=== PATIENT | female | born 1990 | race American Indian/Alaskan Native ===

== ENCOUNTER 2018-06-23 19:17 | Emergency (ER) | payer MEDICAID ==
[2018-06-23 19:22] VITALS: BP 123/58
--- NOTE | 2018-06-23 19:25 | Emergency Department Report ---
Blank Doc - Documentation Documentation: This is a 28-year-old female that presents with vaginal bleeding and pelvic pa in. Stated is about 10 weeks . This initial assessment/diagnostic orders/clinical plan/treatment(s) is/are subject to change based on patient's health status, clinical progression and re-assessment by fellow clinical providers in the ED. Further treatment and workup at subsequent clinical providers discretion. Patient/guardians urged not to elope from the ED as their condition may be serious if not clinically assessed and managed. Initial orders include: 1- Patient sent to [facility] for further evaluation and treatment 2- UA 3- Labs
[2018-06-23 20:28] LABS: Hematocrit 36.3 % (30.3-42.9); Hemoglobin 12.3 gm/dl (10.1-14.3); Mean Corpuscular HGB Conc 34 % (30-34); Mean Corpuscular Volume 88 fl (79-97); Platelet Count 313 K/mm3 (140-440); Red Blood Count 4.13 M/mm3 (3.65-5.03); Red Cell Distribution Width 15.4 % (13.2-15.2)
[2018-06-23 21:09] LABS: Basophils % (Manual) 0 % (0.0-1.8); Total Cells Counted 100
[2018-06-23 21:10] LABS: Anisocytosis 1+; Platelet Estimate Consistent w Auto
--- NOTE | 2018-06-23 22:03 | Emergency Department Report ---
ED HPI - General Chief complaint: Vaginal Bleeding Stated complaint: BLEEDING DURING 10WKS Time Seen by Provider: 06/23/18 19:25 Source: patient Mode of arrival: Ambulatory Limitations: No Limitations - History of Present Illness Initial comments: 28-year-old -[place] female comes in stating she is 10 weeks and started spotting last night. Patient states that it was pinkish yesterday and today it is brownish. Patient reports no pads had been soaked and only have spotting on toilet paper. Patient admits to intermittent pelvic cramping on the right side. Patient is 1 denies any dysuria no vaginal discharge. Patient reports she is taking her vitamins she is going to be followed by Dr. Keysha Morrow at [facility]. MD Complaint: abdominal pain, vaginal bleeding -: days(s) Radiation: RLQ Severity scale (0 -10): 3 Quality: cramping Consistency: intermittent Improves with: none Worsens with: none Associated symptoms: denies other symptoms Vaginal bleeding: light :: Yes Number of weeks : 10 Pre-asad care: followed by OB - Related Data : 0 Allergies Allergy/AdvReac Type Severity Reaction Status Date / Time No Known Allergies Allergy Unverified 06/23/18 19:46 ED Review of Systems ROS: Stated complaint: BLEEDING DURING 10WKS Other details as noted in HPI Comment: All other systems reviewed and negative Gastrointestinal: abdominal pain Genitourinary: other (vaginal spotting) ED Past Medical Hx - Past Medical History Previous Medical History?: No - Surgical History Past Surgical History?: No - Social History Smoking Status: Never Smoker Substance Use Type: None ED Physical Exam - General Limitations: No Limitations General appearance: alert, in no apparent distress - Head Head exam: Present: atraumatic, normocephalic - Eye Eye exam: Present: EOMI - ENT ENT exam: Present: mucous membranes moist - Respiratory Respiratory exam: Present: normal lung sounds bilaterally. Absent: respiratory distress - Cardiovascular Cardiovascular Exam: Present: regular rate, normal rhythm. Absent: systolic murmur, diastolic murmur, rubs, gallop - GI/Abdominal GI/Abdominal exam: Present: soft, normal bowel sounds. Absent: tenderness - Neurological Exam Neurological exam: Present: normal gait - Psychiatric Psychiatric exam: Present: normal affect, normal mood - Skin Skin exam: Present: warm, dry, intact, normal color. Absent: rash ED Course Vital Signs 06/23/18 06/23/18 19:21 19:24 Temperature 97.7 F 97.7 F Pulse Rate 85 80 Respiratory 16 16 Rate Blood Pressure 123/58 123/58 O2 Sat by Pulse 100 100 Oximetry ED Medical Decision Making - Lab Data Result diagrams: 06/23/18 20:00 Laboratory Results - last 24 hr 06/23/18 06/23/18 06/23/18 19:44 20:00 20:00 WBC 7.8 RBC 4.13 Hgb 12.3 Hct 36.3 MCV 88 MCH 30 MCHC 34 RDW 15.4 H Plt Count 313 Add Manual Diff Complete Total Counted 100 Seg Neuts % (Manual) 83.0 H Band Neutrophils % 0 Lymphocytes % (Manual) 15.0 Reactive Lymphs % (Man) 0 Monocytes % (Manual) 1.0 Eosinophils % (Manual) 1.0 Basophils % (Manual) 0 Metamyelocytes % 0 Myelocytes % 0 Promyelocytes % 0 Blast Cells % 0 Nucleated RBC % Not Reportable Seg Neutrophils # Man 6.5 Band Neutrophils # 0.0 Lymphocytes # (Manual) 1.2 Abs React Lymphs (Man) 0.0 Monocytes # (Manual) 0.1 Eosinophils # (Manual) 0.1 Basophils # (Manual) 0.0 Metamyelocytes # 0.0 Myelocytes # 0.0 Promyelocytes # 0.0 Blast Cells # 0.0 WBC Morphology Not Reportable Hypersegmented Neuts Not Reportable Hyposegmented Neuts Not Reportable Hypogranular Neuts Not Reportable Smudge Cells Not Reportable Toxic Granulation Not Reportable Toxic Vacuolation Not Reportable Dohle Bodies Not Reportable Pelger-Huet Anomaly Not Reportable Fanny Rods Not Reportable Platelet Estimate Consistent w auto Clumped Platelets Not Reportable Plt Clumps, EDTA Not Reportable Large Platelets Not Reportable Giant Platelets Not Reportable Platelet Satelliting Not Reportable Plt Morphology Comment Not Reportable RBC Morphology Not Reportable Dimorphic RBCs Not Reportable Polychromasia Not Reportable Hypochromasia Not Reportable Poikilocytosis Not Reportable Anisocytosis 1+ Microcytosis Not Reportable Macrocytosis Not Reportable Spherocytes Not Reportable Pappenheimer Bodies Not Reportable Sickle Cells Not Reportable Target Cells Not Reportable Tear Drop Cells Not Reportable Ovalocytes Not Reportable Helmet Cells Not Reportable Collins-Amberley Bodies Not Reportable Lipscomb Rings Not Reportable Donn Cells Not Reportable Bite Cells Not Reportable Crenated Cell Not Reportable Elliptocytes Not Reportable Acanthocytes (Spur) Not Reportable Rouleaux Not Reportable Hemoglobin C Crystals Not Reportable Schistocytes Not Reportable Malaria parasites Not Reportable Haim Bodies Not Reportable Hem Pathologist Commnt No HCG, Quant 67890 H Blood Type B POSITIVE Antibody Screen Negative - Radiology Data Radiology results: report reviewed Patient: SONI CARMONA MR#: [id number] : 1990 Acct:[id number] Age/Sex: / ADM Date: 06/23/18 Loc: ED Attending Dr: Ordering Physician: KAMERON TOUSSAINT III, MD Date of Service: 06/23/18 Procedure(s): US OB <= 14 weeks fetus Accession Number(s): [id number] cc: KAMERON TOUSSAINT III, MD PROCEDURE: US OB <= 14 WEEKS FETUS TECHNIQUE: Obstetrical ultrasound transabdominal HISTORY: vaginal bleed COMPARISONS: FINDINGS: There is gestational sac within the uterus There is a pole identified with crown-rump length of 4.3 cm corresponding to estimated gestational age of 11 weeks 1 day with estimated date of delivery January 11, 2019. cardiac activity present with heart rate of 163 bpm Right ovary is 2.3 x 1.2 x 1.8 cm Left ovary is 3.0 x 1.8 x 2.1 cm IMPRESSION: Single live intrauterine gestation estimated at 11 weeks 1 day. This document is electronically signed by Palmer Krishnamurthy MD., June 23 2018 10:56:46 PM ET Transcribed By: ANNABELLE Dictated By: JACQUIE KRISHNAMURTHY MD Electronically Authenticated By: JACQUIE KRISHNAMURTHY MD Signed Date/Time: 06/23/182258 DD/ 07 TD/TT: 06/23/182209 - Medical Decision Making She is to follow-up with her supervisor photocomposition. Tylenol for pain. Critical care attestation.: If time is entered above; I have spent that time in minutes in the direct care of this critically ill patient, excluding procedure time. ED Disposition Clinical Impression: Vaginal spotting Disposition: DC-01 TO HOME OR SELFCARE Is pt being admited?: No Does the pt Need Aspirin: No Condition: Stable Instructions: Threatened Miscarriage (ED) Additional Instructions: Please follow up with your supervisor photocomposition in the next 3-5 days. You can take Tylenol for pain management. You are 11 weeks and 1 day. Referrals: KEYSHA MORROW MD [Referring] - 3-5 Days
[2018-06-23 22:11] LABS: Bilirubin,Urine NEG (Negative); Blood,Urine MOD (Negative); Color,Urine Yellow (Yellow); Mucus,Urine FEW /HPF; Protein,Urine <15 mg/dL mg/dL (Negative); Urobilinogen,Urine < 2.0 mg/dL (<2.0)
--- NOTE | 2018-06-23 22:59 | Ultrasound Report ---
PROCEDURE: US OB <= 14 WEEKS FETUS TECHNIQUE: Obstetrical ultrasound transabdominal HISTORY: vaginal bleed COMPARISONS: FINDINGS: There is gestational sac within the uterus There is a pole identified with crown-rump length of 4.3 cm corresponding to estimated gestational ag e of 11 weeks 1 day with estimated date of delivery January 11, 2019. cardiac activity present w ith heart rate of 163 bpm Right ovary is 2.3 x 1.2 x 1.8 cm Left ovary is 3.0 x 1.8 x 2.1 cm IMPRESSION: Single live intrauterine gestation estimated at 11 weeks 1 day. This document is electronically signed by Palmer Wise MD., June 23 2018 10:56:46 PM ET
== END 2018-06-23 23:32 | disposition home or self-care (01) ==
LOC: ED 19:17
DX: O26.851 Spotting complicating pregnancy, first trimester (principal); Z3A.11 11 weeks gestation of pregnancy
CPT/HCPCS: 36415; 76801; 81001; 84702; 85007; 85025; 86850; 86900; 86901

== ENCOUNTER 2018-09-26 18:14 | Outpatient (CLI) | payer MEDICAID ==
[2018-09-26 19:46] VITALS: BP 118/56
[2018-09-26 19:49] LABS: Bilirubin,Urine NEG (Negative); Blood,Urine NEG (Negative); Color,Urine Yellow (Yellow); Mucus,Urine FEW /HPF; Protein,Urine <15 mg/dL mg/dL (Negative); Urobilinogen,Urine < 2.0 mg/dL (<2.0); WBC,Urine < 1.0 /HPF (0.0-6.0)
[2018-09-26] MEDS ORDERED: LACTATED RINGERS 1,000 ML IV ONE (20:00)
== END 2018-09-26 20:15 | disposition home or self-care (01) ==
LOC: TRG 18:14 → ED 18:14 → EDSTATUS 18:49 → TRG 18:56
PROVIDERS: ATTEND Obstetrics & Gynecology
DX: O47.02 False labor before 37 completed weeks of gestation, second trimester (principal); O46.92 Antepartum hemorrhage, unspecified, second trimester; Z3A.24 24 weeks gestation of pregnancy
CPT/HCPCS: 59025; 81001